=== PATIENT | female | born 1965 | race Caucasian/White ===

== ENCOUNTER 2021-09-05 13:20 | Emergency (ER) | payer BC ==
[~2021-09-05] VITALS: Ht 162.6 cm; Wt 68.9 kg
[2021-09-05 14:05] VITALS: BP_SYST 150
[2021-09-05 16:24] VITALS: BP_SYST 132
== END 2021-09-05 16:24 | disposition home or self-care (01) ==
LOC: SED 13:20
DX: S20.211A Contusion of right front wall of thorax, initial encounter (principal); M19.90 Unspecified osteoarthritis, unspecified site; Z88.0 Allergy status to penicillin; W18.39XA Other fall on same level, initial encounter; Y93.89 Activity, other specified; Y92.89 Other specified places as the place of occurrence of the external cause; Y99.8 Other external cause status
CPT/HCPCS: 71045; 76376; 99284